=== PATIENT | female | born 1995 | race Caucasian/White ===

== ENCOUNTER 2024-03-06 12:20 | Day surgery (SDC) | payer BC ==
[2024-03-06 12:54] VITALS: BMI 34.7
[2024-03-06] MEDS ORDERED: hydrALAZINE 20 MG/ML VIAL SLOW IVP PRN (13:09)
[2024-03-06 14:00] LABS: #Basophils 0.04 10x3/uL (0.0-0.2); #Eosinophils 0.07 10x3/uL (0.0-0.5); #Monocytes 0.94 10x3/uL (0.0-1.1); #Neutrophils 8.94 10x3/uL (1.5-8.4); %Basophils 0.3 % (0.0-2.0); %Eosinophils 0.6 % (0.0-6.0); %Lymphocytes 13.1 % (18.0-47.0); %Neutrophils 76.2 % (40.0-75.0); Hemoglobin 11.4 g/dL (12.0-15.5); Mean Corpuscular HGB CONC 33.5 g/dL (32.0-36.0); Mean Corpuscular Hemoglobin 29.5 pg (27.0-33.0); Mean Corpuscular Volume 88.1 fL (81.6-98.3); Mean Platelet Volume 11.4 fL (7.4-10.4); Platelet Count 179 10x3/uL (150-450); RBC Distribution Width 13.4 % (11.5-14.5); Red Blood Cell (RBC) Count 3.86 10x6/uL (3.90-5.03); White Blood Cell (WBC) Count 11.7 10x3/uL (3.5-10.5)
[2024-03-06 14:04] LABS: Creatinine, Urine 145.04 mg/dL (47-110)
[2024-03-06 14:13] LABS: ALT (SGPT) 18 U/L (8-55); AST (SGOT) 21 U/L (5-34); Albumin 2.2 g/dL (3.5-5.0); Alkaline Phosphatase 138 U/L (40-110); Anion Gap 14 mmol/L (10-20); BUN (Urea Nitrogen) 11 mg/dL (7.0-18.7); Bilirubin, Total 0.2 mg/dL (0.2-1.2); Calc. Creatinine Clearance 159 mL/min (70-130); Carbon Dioxide 19 mmol/L (22-29); Chloride 107 mmol/L (98-107); Estimated GFR 121; Glucose 75 mg/dL (70-105); Potassium 5.3 mmol/L (3.5-5.1); Protein, Total 5.2 g/dL (6.0-8.3); Sodium 135 mmol/L (136-145)
== END 2024-03-06 16:30 | disposition home or self-care (01) ==
LOC: CSHLD/OP 12:20
PROVIDERS: ATTEND Obstetrics & Gynecology
DX: O13.3 Gestational [pregnancy-induced] hypertension without significant proteinuria, third trimester (principal); O99.613 Diseases of the digestive system complicating pregnancy, third trimester; K21.9 Gastro-esophageal reflux disease without esophagitis; Z3A.32 32 weeks gestation of pregnancy; Z79.899 Other long term (current) drug therapy
CPT/HCPCS: 36415; 76819; 80053; 82570; 84156; 85025; 99284

== ENCOUNTER 2024-03-08 10:18 | Inpatient (IN) | payer BC ==
[2024-03-08] MEDS ORDERED: Labetalol HCl 100 MG/20 ML VIAL SLOW IVP PRN ×3 (11:53)
[2024-03-08 11:55] LABS: #Basophils 0.04 10x3/uL (0.0-0.2); #Eosinophils 0.06 10x3/uL (0.0-0.5); #Monocytes 0.81 10x3/uL (0.0-1.1); #Neutrophils 7.98 10x3/uL (1.5-8.4); %Basophils 0.4 % (0.0-2.0); %Eosinophils 0.5 % (0.0-6.0); %Lymphocytes 16.8 % (18.0-47.0); %Monocytes 7.1 % (0.0-10.0); %Neutrophils 70.4 % (40.0-75.0); Hemoglobin 12.3 g/dL (12.0-15.5); Mean Corpuscular HGB CONC 34.2 g/dL (32.0-36.0); Mean Corpuscular Hemoglobin 29.6 pg (27.0-33.0); Mean Corpuscular Volume 86.7 fL (81.6-98.3); Mean Platelet Volume 11.3 fL (7.4-10.4); Platelet Count 216 10x3/uL (150-450); Red Blood Cell (RBC) Count 4.15 10x6/uL (3.90-5.03); White Blood Cell (WBC) Count 11.3 10x3/uL (3.5-10.5)
[2024-03-08 12:10] LABS: ALT (SGPT) 34 U/L (8-55); AST (SGOT) 36 U/L (5-34); Albumin 2.3 g/dL (3.5-5.0); Alkaline Phosphatase 149 U/L (40-110); Anion Gap 14 mmol/L (10-20); BUN (Urea Nitrogen) 10 mg/dL (7.0-18.7); Bilirubin, Total 0.2 mg/dL (0.2-1.2); Calc. Creatinine Clearance 0 mL/min (70-130); Carbon Dioxide 20 mmol/L (22-29); Chloride 105 mmol/L (98-107); Estimated GFR 120; Globulin 3.3 g/dL (2.4-3.5); Glucose 75 mg/dL (70-105); Potassium 4.9 mmol/L (3.5-5.1); Protein, Total 5.6 g/dL (6.0-8.3); Sodium 134 mmol/L (136-145)
[2024-03-08 12:14] VITALS: BMI 34.7
[2024-03-08 12:33] LABS: Creatinine, Urine 127.08 mg/dL (47-110)
[2024-03-08] MEDS: Acetaminophen 500 MG TAB PO SCH (12:44)
[2024-03-08] MEDS: hydrALAZINE 20 MG/ML VIAL ONE (12:45)
[2024-03-08] MEDS: Lactated Ringer's 1,000 ML IV SCH (12:45)
[2024-03-08] MEDS: hydrALAZINE 20 MG/ML VIAL SLOW IVP PRN (12:45)
[2024-03-08] MEDS ORDERED: Lidocaine 1% (PF) 30 ML VIAL SC PRN (13:50)
[2024-03-08] MEDS ORDERED: Carboprost 250 MCG/ML AMP IM PRN (13:50)
[2024-03-08] MEDS ORDERED: Calcium Gluc 4.6 MEQ/10 ML (100 MG/ML) SLOW IVP PRN (13:50)
[2024-03-08] MEDS ORDERED: Ibuprofen 800 MG TAB PO PRN (13:50)
[2024-03-08] MEDS ORDERED: hydrALAZINE 20 MG/ML VIAL SLOW IVP PRN (13:50)
[2024-03-08] MEDS ORDERED: Promethazine HCl 25 MG/ML VIAL IM PRN ×2 (13:50→19:22)
[2024-03-08] MEDS ORDERED: HYDROcodone/Acetaminophen 5/325 mg Tablet PO PRN ×2 (13:50)
[2024-03-08] MEDS ORDERED: fentaNYL 50 mcg/mL 1 mL Vial SLOW IVP PRN ×2 (13:50→19:22)
[2024-03-08] MEDS ORDERED: Misoprostol 200 MCG TAB PR PRN (13:50)
[2024-03-08] MEDS ORDERED: Lorazepam 2 MG/ML VIAL SLOW IVP PRN (13:50)
[2024-03-08] MEDS ORDERED: Ondansetron PF 4 MG/2 ML Vial IVP PRN ×3 (13:50→19:22)
[2024-03-08] MEDS ORDERED: Diphenoxylate HCl/Atropine Tablet PO PRN ×2 (13:50)
[2024-03-08] MEDS ORDERED: Magnesium Sulfate 20 gm/500 ml 20 GM/500 ML BAG IVPB SCH (14:00)
[2024-03-08] MEDS ORDERED: Oxytocin 30 units/NS 500 ML 500 ML IV SCH ×2 (14:00)
[2024-03-08] MEDS: Magnesium Sulfate 20 gm/500 ml 20 GM/500 ML BAG ONE (14:16)
[2024-03-08] MEDS: Betamet Acet/Betamet Na Ph 30 MG/5 ML VIAL IM SCH (14:23)
[2024-03-08] MEDS: Misoprostol 100 MCG TAB VAG SCH (14:28)
[2024-03-08] MEDS: Magnesium Sulfate 20 gm/500 ml 4 GM/100 ML BAG IVPB SCH (14:38)
[2024-03-08] MEDS: CEFAZOLIN 2 GM VIAL ONE (19:11)
[2024-03-08] MEDS ORDERED: diphenhydrAMINE 50 MG/ML VIAL IVP PRN (19:22)
[2024-03-08] MEDS ORDERED: Naloxone HCl 0.4 mg/ml Vial IV PRN (19:22)
[2024-03-08] MEDS ORDERED: Moisturizing Cream (Eucerin) 113 GM JAR TOP PRN (19:22)
[2024-03-08] MEDS ORDERED: Naloxone HCl 0.4 mg/ml Vial IVP PRN ×2 (19:22)
[2024-03-08] MEDS ORDERED: Meperidine HCl/PF 25 MG (1 mL) VIAL SLOW IVP PRN (19:22)
[2024-03-08] MEDS ORDERED: Communication Order-Pharmacy FS SCH (19:30)
[2024-03-08 20:11] LABS: Analyzer IN Cardio CS NICU; RapidComm Collect By RN
[2024-03-08 20:13] LABS: Analyzer IN Cardio CS NICU; RapidComm Collect By RN; pH (Cord, venous) 7.312 (7.250-7.350)
[2024-03-09 01:08] LABS: Magnesium 4.9 mg/dL (1.6-2.6)
[2024-03-09] MEDS: Magnesium Sulfate 20 gm/500 ml 20 GM/500 ML BAG IVPB SCH (01:49)
[2024-03-09 03:54] LABS: Magnesium 4.8 mg/dL (1.6-2.6)
[2024-03-09 06:27] LABS: Hematocrit 37.3 % (34.9-44.5); Hemoglobin 12.6 g/dL (12.0-15.5); Mean Corpuscular HGB CONC 33.8 g/dL (32.0-36.0); Mean Corpuscular Hemoglobin 30.2 pg (27.0-33.0); Mean Corpuscular Volume 89.4 fL (81.6-98.3); Mean Platelet Volume 10.8 fL (7.4-10.4); Platelet Count 234 10x3/uL (150-450); RBC Distribution Width 13.5 % (11.5-14.5); Red Blood Cell (RBC) Count 4.17 10x6/uL (3.90-5.03); White Blood Cell (WBC) Count 21.4 10x3/uL (3.5-10.5)
[2024-03-09 06:28] LABS: #Basophils 0.14 10x3/uL (0.0-0.2); #Monocytes 0.64 10x3/uL (0.0-1.1); #Neutrophils 19.04 10x3/uL (1.5-8.4); %Basophils 0.6 % (0.0-2.0); %Lymphocytes 9.1 % (18.0-47.0); %Monocytes 2.9 % (0.0-10.0); %Neutrophils 85.6 % (40.0-75.0)
[2024-03-09 06:42] LABS: Magnesium 4.6 mg/dL (1.6-2.6)
[2024-03-09] MEDS ORDERED: HYDROcodone/Acetaminophen 5/325 mg Tablet PO PRN (07:30)
[2024-03-09] MEDS: NIFEdipine XL 30 MG ER.TAB PO SCH (08:00)
[2024-03-09] MEDS: Ketorolac Tromethamine 30 MG (1 mL) VIAL IVP PRN (08:19)
[2024-03-09] MEDS: HYDROcodone/Acetaminophen 5/325 mg Tablet PO PRN ×2 (12:00→21:18)
[2024-03-10] MEDS: Ibuprofen 800 MG TAB PO PRN
[2024-03-10] MEDS: Morphine PF 10 MG/10 ML VIAL ONE (07:32)
[2024-03-10] MEDS: Dexmedetomidine 200 MCG/2 ML VIAL ONE (07:32)
[2024-03-10] MEDS: Phenylephrine 40 MG/NS 250 ML 250 ML ONE (07:32)
[2024-03-10] MEDS: Dexamethasone 10 MG/ML VIAL ONE (07:32)
[2024-03-10] MEDS: Oxytocin 10 UNITS/ML VIAL ONE (07:32)
[2024-03-10] MEDS: Sodium Chloride 0.9% 10 ML ONE (07:32)
[2024-03-10] MEDS: Ondansetron PF 4 MG/2 ML Vial ONE (07:33)
[2024-03-10] MEDS: NIFEdipine XL 30 MG ER.TAB PO SCH ×2 (07:33→08:23)
[2024-03-10] MEDS: Ketorolac Tromethamine 30 MG (1 mL) VIAL ONE (07:33)
[2024-03-10] MEDS ORDERED: HYDROcodone/Acetaminophen 5/325 mg Tablet PO PRN (09:21)
[2024-03-12 08:14] VITALS: BP 139/84; TEMP 98
[2024-03-12] MEDS: NIFEdipine XL 30 MG ER.TAB PO SCH (10:59)
== END 2024-03-12 17:20 | disposition home or self-care (01) | DRG 788 ==
LOC: CSHLD/OP 10:18 → CSHLD 13:51 → CSHPP 03-09 23:27
PROVIDERS: ADMIT Obstetrics & Gynecology; ATTEND Obstetrics & Gynecology
PROC: 10D00Z1 Extraction of Products of Conception, Low, Open Approach (ICD-10-PCS; principal; 2024-03-08)
DX: O14.14 Severe pre-eclampsia complicating childbirth (principal); Z3A.33 33 weeks gestation of pregnancy; Z37.0 Single live birth; O76 Abnormality in fetal heart rate and rhythm complicating labor and delivery
CPT/HCPCS: 36415; 51702; 80053; 82570; 82805; 83735; 84156; 85025; 86850; 86900; 86901; 99285; J0360; J0702; J1100; J1885; J2274; J2405; J2590; J3475